=== PATIENT | male | born 1980 | race African-American/Black ===

== ENCOUNTER 2022-02-04 22:23 | Emergency (ER) | payer BC ==
[~2022-02-04] VITALS: Ht 190.5 cm; Wt 125.0 kg
[2022-02-04] MEDS ORDERED: BACITRACIN ZINC OINT UDPKT TOP ONE (22:45)
[2022-02-04] MEDS ORDERED: TETANUS, DIPHTHERIA, PERTUSSIS VAC/PF 0.5ML (>10YR OLD) IM ONE (22:45)
[2022-02-05 00:05] VITALS: BP 122/78
== END 2022-02-05 00:05 | disposition home or self-care (01) ==
LOC: ER 22:23
DX: S61.315A Laceration without foreign body of left ring finger with damage to nail, initial encounter (principal); W27.4XXA Contact with kitchen utensil, initial encounter; Y93.89 Activity, other specified; Y92.010 Kitchen of single-family (private) house as the place of occurrence of the external cause
CPT/HCPCS: 12001; 73130; 90471; 90715; 99283